=== PATIENT | male | born 1965 | race African-American/Black ===

== ENCOUNTER 2025-06-27 19:24 | Emergency (ER) | payer BC ==
[~2025-06-27] VITALS: Ht 182.9 cm; Wt 99.0 kg
[2025-06-27 19:34] VITALS: O2SAT 100
[2025-06-27 19:48] VITALS: BP 147/92; PULSE 96; RESP 18; TEMP 36.8; O2SAT 98
== END 2025-06-27 21:00 | disposition left against medical advice (07) ==
LOC: ER 19:24
DX: I10 Essential (primary) hypertension (principal)
CPT/HCPCS: 99281